=== PATIENT | female | born 1995 | race Caucasian/White ===

== ENCOUNTER 2023-05-15 08:04 | Emergency (ER) | payer BC, SELFPAY ==
[2023-05-15 08:20] VITALS: BP 121/75; PULSE 78; RESP 16; TEMP 36.4; O2SAT 99
--- NOTE | 2023-05-15 08:42 | ED.GENADULT ---
HPI - General Adult General Chief complaint: Back Pain/Injury Stated complaint: Back Pain Source: patient Mode of arrival: ambulatory Limitations: no limitations History of Present Illness HPI narrative: Patient presents for evaluation of low back pain for the last 9 days. She indicates she has history of lumbar disc herniations at L3 through L5. 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 She rates her pain at rest 7/10 in severity but it increases to 10/10 in severity with movement. Pain radiates up her back toward her neck. No paresthesias. No urinary symptoms. No bladder / bowel incontinence. She has been taking ibuprofen for her pain. She is planning on having x rays performed with her chiropractor on Wednesday. Related Data Allergies Allergy/AdvReac Type Severity Reaction Status Date / Time No Known Allergies Allergy Verified 05/15/23 08:15 Review of Systems Review of Systems: CONSTITUTIONAL: Denies fever, chills, or sweats. EYES: Denies visual changes, redness, or discharge. ENT: Denies rhinorrhea, congestion, sore throat, or otalgia. CARDIOVASCULAR: Denies chest pain, palpitations, or edema. RESPIRATORY: Denies cough or dyspnea. GASTROINTESTINAL: Denies abdominal pain, nausea, vomiting, or diarrhea. GENITOURINARY: Denies dysuria or hematuria. SKIN: Denies rash or itching. MUSCULOSKELETAL: Reports low back pain. Denies joint pain, or myalgia. NEUROLOGIC: Denies headache, numbness, dizziness, or weakness. PSYCHIATRIC: Denies anxiety or depression. [facility] Past Medical History Medical History Herniated lumbar intervertebral disc Surgical History Surgical History History of tonsillectomy Family History Family History Mother Family history non-contributory Social History Social History Smoking status: Never smoker Substance use: never Living arrangements: with family Occupation/Education: student Gender identity (if verbalized by the patient): Female Sexual Orientation (if Verbalized by the Patient): Straight or Heterosexual Spiritual care concerns: No Exam Narrative: GENERAL: Well-appearing, well-nourished, and in no acute distress. HEAD: Normocephalic, atraumatic. EYES: PERRLA and EOMI. ENT: Nares clear, no rhinorrhea or epistaxis. Mucous membranes moist. Oropharynx without tonsillar hypertrophy exudate or other lesions. Bilateral TMs pearly lopez nonbulging NECK: Supple. No adenopathy or masses. No carotid bruits or JVD CHEST: Clear to auscultation. No respiratory distress. No wheezes rales or rhonchi HEART: Regular rate and rhythm. No murmur heard. Normal peripheral pulses. ABDOMEN: Soft, nontender nondistended, normal active bowel sounds. EXTREMITIES: Normal range of motion. No edema. BACK: Tenderness in midline and paraspinous muscles of lumbar spine SKIN: Warm, dry, no rash. NEURO: No focal deficits. Alert and oriented x3. PSYCH: Normal mood and affect. Course Course Emergency Course: This is a 28-year-old female with history of herniated lumbar discs who presented for evaluation of low back pain following lifting a patient. She has no emergent red flag signs. I offered to check x ray of lumbar spine. She declined. She is seeing her chiropractor on Wednesday. We discussed treatment options and ultimately decided to move forward with medrol dose naida and flexeril. She should follow up with her primary provider. Go to the ER for worsening symptoms. Pt in agreement with plan of care. Level of Care: Express Care Visit Vital Signs Vital signs: Vital Signs Temperature 36.4 C L 05/15/23 08:20 Pulse Rate 78 05/15/23 08:20 Respiratory Rate 16 05/15/23 08:20 Blood Pressure 121/75 05/15/23 0
== END 2023-05-15 08:32 | disposition home or self-care (01) ==
PROVIDERS: Emergency Provider Nurse Practitioner
DX: M51.26 Other intervertebral disc displacement, lumbar region (principal)
CPT/HCPCS: 99213; G0463

== ENCOUNTER 2025-03-29 19:25 | Emergency (ER) | payer OTHER, SELFPAY ==
[2025-03-29 19:39] VITALS: BP 122/69; PULSE 76; RESP 16; TEMP 37.1; O2SAT 100
--- OUTSIDE RECORDS SUMMARY | 2025-03-29 20:40 | XMS_ITS | Encounter Summary ---
Author Organization [facility] Address [address] [place] [address] Care Team Providers Care Sales Coach Name Role Phone No, Physician Primary Care Provider [phone] Elinor Shrestha MD Unavailable [phone] Encounter Details Date Type Department Care Team (Late st Contact Info) Description 02/28/2025 Results Follow-Up [facility] [address] [place] [address] [address] [place] [address] Elinor Shrestha MD [address] [address] [place] [address] Rubella IgG antibody Blood, RPR Titer Blood, ABO/Rh, Additional followed-up results: 7 Social History Tobacco Use Types Packs/Day Years Used Date Smoking Tobacco: Never Passive Smoke Exposure: Never Smokeless Tobacco: Never Humiliation, Afraid, Rape, and Kick questionnair e Answer Date Recorded Within the last year, have y ou been afraid of your partner or ex-partner? No 02/02/2025 Within the last year, have y ou been humiliated or emotionally abused in other ways by your partner or ex-partner? No Within the last year, have y ou been kicked, hit, slapped, or otherwise physically hurt by your partner or ex-partner? No 02/02/2025 Within the last year, have y ou been raped or forced to have any kind of sexual activity by your partner or ex-partner? No 02/02/2025 AUDIT-C Answer Date Recorded Q1: How often do you have a drink containing alcohol? Never 02/01/2024 Q2: How many drinks containi ng alcohol do you have on a typical day when you are drinking? Patient does not drink Q3: How often do you have si x or more drinks on one occasion? Never 02/01/2024 Overall Financial Resource Strain (CARDIA) Answe r Date Recorded How hard is it for you to pa y for the very basics like food, housing, medical care, and heating? Not hard at all 07/27/2024 Hunger Vital Sign Answer Date Recorded Within the past 12 months, y ou worried that your food would run out before you got the money to buy more. Never true 07/27/19 25 Within the past 12 months, t he food you bought just didn't last and you didn't have money to get more. Never true 07/27/2024 PRAPARE - Transportation Answer Date Re corded In the past 12 months, has l ack of transportation kept you from medical appointments or from getting medications? No 08/2024 In the past 12 months, has l ack of transportation kept you from meetings, work, or from getting things needed for daily living? No 07/27/2024 [place] Depression Scale Answer Date Recorded [place] Depression Scale Total 1 08/04/2024 The thought of harming myself has occurred to me . Never 08/04/2024 Housing Stability Vital Sign Answer Victorino e Recorded In the last 12 months, was t here a time when you were not able to pay the mortgage or rent on time? No 07/27/2024 In the past 12 months, how m any times have you moved where you were living? 1 07/27/2024 At any time in the past 12 m [facility], were you homeless or living in a detention (including now)? No 07/27/2024 Personal Safety Answer Date Recorded Have you ever been in or are you currently in a harmful physical or emotional relationship or is someone making you feel afraid or unsafe? 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
--- OUTSIDE RECORDS SUMMARY | 2025-03-29 20:40 | XMS_ITS | Clinical Summary ---
Author Organization [facility] [address] Address [address] [place] [id number] Care Team Providers Care Psychiatric Np Name Role Phone No, Physician Primary Care Provider [phone] Elinor Shrestha MD Unavailable [phone] Allergies No known active allergies Medications PNV cmb 00-nydy-DL-omega -3-dha 29 mg iron- 1 mg-200 mg combo pack Take by mouth Active cholecalciferol (VITAMIN D-3) 2000 unit tablet Take 1 tablet (2,000 Units total) by mouth daily Active Active Problems Problem Noted Date Diagnosed Date Supervision of other normal , antepartu m 02/01/2025 Overview (02/01/2025): NOTES: Partner name: 1st Trimester: [] Dating Criteria: [] Labs: Lab Results Component Value Date RUBELIGG Nonreactive (A) 02/01/2024 [id number] Nonreactive 02/01/2024 HEPBSAG Nonreactive 02/01/2024 HEPCAB Nonreactive 02/01/2024 LABRPR Nonreactive 08/02/2024 CTRACHOMATIS Not Detected 02/01/2024 NGONORRHOEAE Not Detected 02/01/2024 MICROBIOLOGY 02/01/2024 Final Report: Less than 100,000 colonies/mL (clinically insignificant growth based on current clinical standards) ORGANISM (CLINICALLY INSIGNIFICANT GROWTH 02/01/2024 ABORH O Positive 08/02/2024 IDCOOMB Negative 08/02/2024 [] NIPT: [] Carrier screening: [] ASA at 12 weeks: 2nd - 3rd Trimester: [] Anatomy ultrasound: [] Placenta Location: previa or no previa [] echo (if monochorionic, IVF, hx CHD): [] 1h GTT: Lab Results Component Value Date [id number] 173 (H) 05/16/2024 [] CBC: [] Flu vaccine: [] Rhogam (28 wks if Rh neg): [] Tdap vaccine: [] 32 wk ultrasound: [] RSV vaccine (32-36wks): [] GBS (36 wks): No results found for: GBS Lab Results Component Value Date STREPBDNA Negative 07/13/2024 Counseling: [] Shadowgraph Scale Operator: [] Circumcision: [] Method of feeding: [] Method of contraception: [] Epidural: [] Route of Delivery: [] Timing of Delivery: [] Childbirth classes Migraines 10/12/2024 Overview (02/27/2025): With aura. Vitamin D deficiency 10/12/2024 Overview (02/27/2025): Takes supplement. H/O Diet COntrolled GDM in prior 05/19 Overview (02/01/2025): Assessment & Plan (06/16/2024 11:05 AM ELECTROLYSIS NEEDLE OPERATOR): Glucose log reviewed. Good control Childhood asthma 02/01/2024 Overview (02/01/2024): None since child serna Assessment & Plan (02/01/2024 11:17 AM CDT): We discussed that asthma improves in 1/3 of pregnancies and worsens in 1/3. To let me know if she is needing to use her rescue inhaler more than prescribed. 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 Partner name: Chaz (Plaster Die Maker) Big sister: Katiana (6 months) 1st Trimester: [x] Dating Criteria: 1st trimester US [] Labs: Lab Results Component Value Date RUBELIGG Nonreactive (A) 02/01/2024 [id number] Nonreactive 02/01/2024 HEPBSAG Nonreactive 02/01/2024 HEPCAB Nonreactive 02/01/2024 LABRPR Nonreactive 02/01/2024 CTRACHOMATIS Not Detected 02/01/2024 NGONORRHOEAE Not Detected 02/01/2024 MICROBIOLOGY 02/01/2024 Final Report: Less than 100,000 colonies/mL (clinically insignificant growth based on current clinical standards) ORGANISM (CLINICALLY INSIGNIFICANT GROWTH 02/01/2024 ABORH O Positive 02/01/2024 IDCOOMB Negative ABSC 02/01/2024 [x] NIPT: declines [x] Carrier screening: declines [x] ASA at 12 weeks: not indicated 2nd - 3rd Trimester: [] Anatomy ultrasound: [] Placenta Location: [] 1h GTT: Lab Results Component Value Date [id number] 173 (H) 05/16/2024 [] CBC: Lab Results Component Value Date WBC 8.5 05/16/2024 HGB 11.7 05/16/2024 HCT 35.1 05/16/2024 MCV 94 05/16/2024 LABPLAT 159 05/16/2024 [] Flu vaccine: [x] Rhogam (28 wks if Rh neg): not indicated, O+ [] Tdap vaccine: [] 32 wk ultrasound: [x] RSV vaccine (32-36wks): Declines [] GBS (36 wks): No results found for: GBS Lab Results Component Value Date STREPBDNA Negative 07/13/2024 No results found for: GBS Counseling: [] Shadowgraph Scale Operator: [] Method of feeding: [] Method of contraception: [] Epidural: [] Route of Delivery: [] Timing of Delivery: Assessment & Plan (03/20/2024 3:49 PM CDT): - Reviewed US results - Discussed finding a service plumber - Breast pump RX given to patient - Discussed option for classes at [email or web address] Assessment & Plan (02/29/2024 8:54 AM CDT): Transfer of care at 16 weeks Reviewed care Encounters Date Type Department Care Team Description 03/16/2025 Telephone [facility] [address] [facility] [address], [place] [address] Elinor Shrestha MD 02/28/2025 Results Follow-Up [facility] [address] [facility] [address] [facility] [address], [place] [address] Elinor Shrestha MD Rubella IgG antibody Blood, RPR Titer Blood, ABO/Rh, Additional followed-up results: 7 02/27/2025 1:45 PM CDT Office Visit [facility] [address] [facility] [address], [place] [address] Elinor Shrestha MD Positive test (Primary Dx) 02/27/2025 1:30 PM CDT Ancillary Procedure [facility] [address] [facility] [address] [place] [address] , unspecified gestational age 0702/01/2025 Telephone [facility] [address] [facility] [address] [place] [id number] Elinor Shrestha MD from Last 3 Months Immunizations Immunization Administration Dates Next Due Influenza, Trivalent, Preservative Free, Intramu scular 05/31/2024 MMR 10/12/2024 Tdap 06/16/2024 Surgical History Surgery Date Site/Laterality Comments AUGMENTATION MAMMAPLASTY TONSILLECTOMY Medical History Medical History Date Comments Asthma childhood Diabetes mellitus (HCC) Gestatio nal-diet controlled Lumbar herniated disc L3-S1 Family History Medical History Relation Name Comments Hypertension Father Diabetes type II Maternal Grandfather Heart disease Maternal Grandfather Alcohol abuse Mother her sisters al l had. Hall's disease Other Runs in the family No Known Problems Sister Cancer Neg Hx no colon, rn gyn o r breast cancer cmt 7/9/24 Relation Name Status Comments Father Maternal Grandfather Mother Other Sister Social History Tobacco Use Types Packs/Day Years Used Date Smoking Tobacco: Never Passive Smoke Exposure: Never Smokeless Tobacco: Never Tobacco Cessation:Counseling Given: Not Answered Humiliation, Afraid, Rape, and Kick questionnair e [...] things needed for daily living? No 07/27/2024 [place] Depression Scale Answer Date Recorded [place] Depression Scale Total 1 08/04/2024 The thought [...] any time in the past 12 m [facility], were you homeless or living in a jail (including now)? No 07/27/2024 Personal Safety Answer [...] file Not on file Not on file Obstetrics History Para Term AB IAB SAB Ectopic Multiple Livin g Live Births 2 1 1 0 0 0 0 0 0 1 1 Date Outcome GA Total Labor Labor/2nd/3rd Weight Sex Type Anes PTL Shirley A1 A5 Name Clin 2024 Term 39w 2d 11h 55m 8h 41m/3h 10m/0h 04m 3.52 kg (7 lb 12.2 oz) F Vagina l Epidur al N Livin g 8 9 Katiana D [facility]ulkadir [facility] Complications:None Delivery Location:This Facil ity ([facility]) Current Summary Episode Dates Number of Fetuses Estimated Date of Delivery 02/01/2025 - Present (03/29/2025) 10/13/2025 (set by Elinor Shrestha MD on 02/27/2025 based on Ultrasound on 02/27/2025) Dating Summary Based On GABE GA Diff Last Menstrual Period on 12/31/2024 10/07/2025 +6d Ultrasound on 02/27/2025 10/13/2025 Working GA:7w3d Vitals Pregravid Weight Height TWG (As of 03/29/2025) Pregrav id BMI 72.6 kg (160 lb) 165.1 cm (5' 5) 1.361 kg (3 lb) 26.6 3 Notes Progress Notes - Office Visi t - 02/27/2025 - GA:7w3d 02/27/2025 - 7w3d - Elinor Shrestha MD Images from the original note were not included. Office Visit for Confirmation of Subjective: Geoff Lucas is a 29 y.o. year old female who presents for evaluation of secondary amenorrhea. OB US independently interpreted by me: US Ob Transvaginal Result Date: 02/27/2025 Impression: There is a viable Fisher intrauterine identified. The CRL measured 7 weeks 3 days. This is not consistent with LMP dating. The heart rate is 156 beats per minute. There is a corpus luteum noted within the left ovary. The right ovary is normal. Nausea/vomiting? yes Vaginal bleeding? no Planned ? no Desired ? yes Menstrual History: Patient's last menstrual period was 12/31/2024. 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: Last pap:PAP: 02/01/24, normal neg hpv History of STDs: none Medical: Past Medical History: Diagnosis Date Asthma childhood Diabetes mellitus (HCC) Gestational-diet controlled Lumbar herniated disc L3-S1 Surgical: Past Surgical History: Procedure Laterality Date AUGMENTATION MAMMAPLASTY TONSILLECTOMY Medications: Current Outpatient Medications: cholecalciferol (VITAMIN D-3) 2000 unit tablet, Take 1 tablet (2,000 Units total) by mouth daily, Disp: , Rfl: PNV cmb 85-lnaf-NX-omega-3-dha 29 mg iron- 1 mg-200 mg combo pack, Take by mouth, Disp: , Rfl: Allergies: No Known Allergies Family History: Family History Problem Relation Age of Onset Alcohol abuse Mother her sisters all had. Hypertension Father No Known Problems Sister Heart disease Maternal Grandfather Diabetes type II Maternal Grandfather Hall's disease Other Runs in the family Cancer Neg Hx no colon, rn gyn or breast cancer cmt 02/01/24 Social History: Social History Tobacco Use Smoking status: Never Passive exposure: Never Smokeless tobacco: Never Substance and Sexual Activity Drug use: Never Sexual activity: Yes Partners: Male Alcohol Use: Not At Risk (02/01/2024) AUDIT-C Frequency of Alcohol Consumption: Never Average Number of Drinks: Patient does not drink Frequency of Binge Drinking: Never Physical Exam: Vitals: BP 110/80 Ht 165.1 cm (5' 5) Wt 163 lb (73.9 kg) LMP 12/31/2024 Unknown BMI 27.12 kg/m Constitutional: She is alert. She appears well-developed and well-nourished. No apparent distress. Head: Normocephalic and atraumatic. Neck: Neck supple. No thyromegaly present. No lymphadenopathy. Pulmonary/Chest: Effort normal and breath sounds normal. No respiratory distress. Breast: There are no masses, lumps, or lesions bilaterally. Bilateral nipples are normal. No axillary lymphadenopathy or cervical lymphadenopathy. Abdominal: Soft, non-tender, non-distended. No hernia or mass. Psychiatric: She has a normal mood and affect : Normal external genitalia. Urethra normal. Vagina is normal. Physiologic discharge. - cervix visually closed without lesions Assessment and Plan: Geoff Lucas is a 29 y.o. female who presents for secondary amenorrhea Secondary amenorrhea due to - Reviewed dating - Recommend PNV with DHA daily - OB labs ordered: OB panel, HIV, urine culture - Discussed options for carrier testing for cystic fibrosis and SMA - declines - Genetic screening offered. declines NIPT - Reviewed course of care and normal - Dietary and activity recommendations reviewed - Discussed practice policies and general guidelines. Referred to brochure for [id number] medications safe in and remedies for common symptoms of . - Discussed appropriate weight gain in . - Dietary recommendations reviewed, specifically, limiting caffeine to 200 mg daily. No ETOH, smoking or drug use. Discussed pasturized milk and heating up deli meat. Advised against eating raw or undercooked meat, poultry or fish. Fish that are high in mercury including shark, tilefish, desiree mackerel and swordfish should also be avoided. - Discussed benefits of regular exercise. Discussed avoiding dangerous activities such as rock climbing, water skiing, snow skiing, roller bleeding. - Discussed travel up to 34 weeks is typically fine - We discussed routine office visits every 4 weeks for first 28 weeks, then every 2 weeks to 36 weeks, and then weekly until delivery. - We discussed that my partners and I deliver at [facility]. 2. H/o prior GDM - hgb A1c 3. Childhood asthma - no issures in prior - will avoid hemabate 4. Short interval - increased risk for gHTN, IUGR, and PTD - will monitor closely for the above Elinor Shrestha MD Last Filed Vital Signs Vital Sign Reading Time Taken Comments Blood Pressure 110/80 02/27/2025 1:58 PM CDT Pulse 69 08/05/2024 7:34 AM ELECTROLYSIS NEEDLE OPERATOR Temperature 36.4 C (97.5 F) 08/05/2024 7:34 AM ELECTROLYSIS NEEDLE OPERATOR Respiratory Rate 18 08/05/2024 7:34 AM ELECTROLYSIS NEEDLE OPERATOR Oxygen Saturation 100% 08/05/2024 7:34 AM ELECTROLYSIS NEEDLE OPERATOR Inhaled Oxygen Concentration - - Weight 73.9 kg (163 lb) 02/27/2025 1:58 PM CDT Height 165.1 cm (5' 5) 02/27/2025 1:58 PM CDT Body Mass Index 27.12 02/27/2025 1:58 PM CDT Plan of Treatment Health Maintenance Due Date Last Done Comments Hepatitis B Screening 2013 Regular Well Visit/Exam 18-64 2013 Pneumococcal vaccine <65 (1 of 2 - PCV) 2014 HPV Vaccines (1 - 3-dose SCDM series) 2022 Varicella Vaccines (1 of 2 - 13+ 2-dose series) 11/09/2024 Cervical Cancer Screening 01/31/2025 02/01/2024 Influenza Vaccine (#1) 2025 05/31/2024 Depression Screening 08/04/2025 08/04/2024 DTaP/Tdap/Td Vaccine (2 - Td or Tdap) 06/16/2034 Hepatitis C Screening Completed 02/27/2025, 024 Procedures Procedure Name Priority Date/Time Associated Diagnosis Comments INTERPRETATION: Routine 02/27/2025 2:19 PM CDT THYROID FUNCTION CASCADE Routine 02/27/2025 2:19 PM CDT HEMOGLOBIN A1C Routine 02/27/2025 2:19 PM CDT ANTIBODY SCREEN Routine 02/27/2025 2:19 PM CDT Positive test HEPATITIS C AB W/REFL TO HCV RNA, QN, PCR (REFL) Routine 02/27/2025 2:19 PM CDT Positive test CBC WITHOUT DIFFERENTIAL Routine 02/27/2025 2:19 PM CDT Positive test ABO/RH Routine 02/27/2025 2:19 PM CDT Positive test URINE CULTURE Routine 02/27/2025 2:19 PM CDT HIV 1/2 ANTIBODY PLUS P24 ANTIGEN Routine 02/27/2025 2:19 PM CDT Positive test HEPATITIS B SURFACE ANTIGEN Routine 02/27/2025 2:19 PM CDT Positive test RPR TITER Routine 02/27/2025 2:19 PM CDT Positive test RUBELLA IGG Routine 02/27/2025 2:19 PM CDT Positive test POCT OB URINE SHORT DIP (GLUCOSE, PROTEIN, KETONES) Routine 02/27/2025 2:05 PM CDT Positive test US OB TRANSVAGINAL Schedule Routine, Read Routine (OP Routine) 02/27/2025 1:35 PM CDT , unspecified gestational age PAP WITH REFLEX TO HIGH RISK HPV Routine 02/01/2024 9:21 AM CDT Encounter for supervision of normal first in first trimester 13 weeks gestation of from Last 3 Months or Most Recently Relevant to Health Maintenance Results * HEPATITIS C AB W/REFL TO HCV RNA, QN, PCR (REFL) (02/27/2025 2:19 PM CDT) Pathologist [facility] Hep C Ab Non Reactive Non Reactive [facility] - 01 Blood 02/27/2025 2:19 PM CDT 02/27/2025 Narrative [facility] - 02/28/2025 6:36 AM CDT Performed at: [address] [place] [id number] Orthodontic Technician Assistant: Erlin Alvarado PhD, Phone: [phone] Elinor Shrestha MD LAB BLOOD ORDERABLES Final Result Performing Organization Address [facility] de Phone Number [facility] - * Interpretation: (02/27/2025 2:19 PM CDT) Pathologist [facility] Ref lab test, interp Comment [facility] - 0 1 Comment: Not infected with HCV unless early or acute infection is suspected (which may be delayed in an immunocompromised individual), or other evidence exists to indicate HCV infection. 02/27/2025 2:19 PM CDT 02/27/2025 Narrative [facility] - 02/28/2025 6:36 AM CDT Performed at: [address] [place] [address] [id number] Orthodontic Technician Assistant: Erlin Alvarado PhD, Phone: [phone] Elinor Shrestha MD LAB BLOOD ORDERABLES Final Result Performing Organization Address [facility] de Phone Number [facility] - 01 * Thyroid Function Kerrick (02/27/2025 2:19 PM CDT) Pathologist [facility] TSH 0.768 0.450 - 4.500 uIU/mL [facility] - 01 Comment: No apparent thyroid disorder. Additional testing not indicated. In rare instances, Secondary Hypothyroidism as well as Subclinical Hypothyroidism have been reported in some patients with normal TSH values. 02/27/2025 2:19 PM CDT 02/27/2025 Narrative [facility] - 02/28/2025 10:36 AM CDT Performed at: [address] [place] [address] [id number] Orthodontic Technician Assistant: Erlin Alvarado PhD, Phone: [phone] Elinor Shrestha MD LAB BLOOD ORDERABLES Final Result Performing Organization Address [facility] Co de Phone Number [facility] - * RPR Titer Blood (02/27/2025 2:19 PM CDT) Pathologist [facility] RPR Non Reactive Non Reactive [facility] - Blood 02/27/2025 2:19 PM CDT 02/27/2025 Narrative [facility] - 02/28/2025 8:12 AM CDT Performed at: [address] [place] [address] [id number] Orthodontic Technician Assistant: Erlin Alvarado PhD, Phone: [phone] us Elinor Shrestha MD LAB MICROBIOLOGY - GENERAL ORDERABLES Final Result Performing Organization Address [facility] Co de Phone Number [facility] - * HIV 1/2 Antibody plus p24 Antigen Blood (02/27/2025 2:19 PM CDT) Pathologist [facility] HIV 1/2 Ab + p24 Ag Non Reactive Non Reactive [facility] - 01 Comment: HIV-1/HIV-2 antibodies and HIV-1 p24 antigen were NOT detected. There is no laboratory evidence of HIV infection. HIV Negative Blood 02/27/2025 2:19 PM CDT 02/27/2025 Narrative [facility] - 02/28/2025 6:36 AM CDT Performed at: [address] [id number] Orthodontic Technician Assistant: Erlin Alvarado PhD, Phone: [phone] Elinor Shrestha MD LAB MICROBIOLOGY - GENERAL ORDERABLES Final Result Performing Organization Address [facility] Co de Phone Number [facility] - * ABO/Rh (02/27/2025 2:19 PM CDT) Pathologist [facility] ABO Grouping O [facility] - 01 Rh Factor Positive [facility] - 01 Comment: Please note: Prior records for this patient's ABO / Rh type are not available for additional verification. Blood 02/27/2025 2:19 PM CDT 02/27/2025 Narrative [facility] - 02/28/2025 9:36 AM CDT Performed at: [address] [place] [address] [id number] Orthodontic Technician Assistant: Erlin Alvarado PhD, Phone: [phone] Elinor Shrestha MD LAB BLOOD BANK TEST ORDERAB LES Final Result Performing Organization Address [facility] de Phone Number [facility] - * Rubella IgG antibody Blood (02/27/2025 2:19 PM CDT) [facility] Rubella IgG index 3.49 Immune >0.99 index [facility] - Comment: Non-immune <0.90 Equivocal 0.90 - 0.99 Immune >0.99 Blood 02/27/2025 2:19 PM CDT 02/27/2025 Narrative [facility] - 02/28/2025 8:12 AM CDT Performed at: [address] [place] [address] [id number] Orthodontic Technician Assistant: Erlin Alvarado PhD, Phone: [phone] Elinor Shrestha MD LAB MICROBIOLOGY - GENERAL ORDERABLES Final Result Performing Organization Address [facility] Co de Phone Number [facility] - * Hepatitis B Surface Antigen Blood (02/27/2025 2:19 PM CDT) Pathologist [facility] HepBsAg Negative Negative [facility] - 01 Blood 02/27/2025 2:19 PM CDT 02/27/2025 Narrative [facility] - 02/28/2025 6:36 AM CDT Performed at: [address] [place] [address] [id number] Orthodontic Technician Assistant: Erlin Alvarado PhD, Phone: [phone] us Elinor Shrestha MD LAB MICROBIOLOGY - GENERAL ORDERABLES Final Result Performing Organization Address [facility]/ZIP Co de Phone Number [facility] - 01 * CBC without differential (02/27/2025 2:19 PM CDT) Pathologist [facility] WBC 9.6 3.4 - 10.8 x10E3/uL [facility] - 01 RBC 4.72 3.77 - 5.28 x10E6/uL [facility] - 01 Hgb 14.1 11.1 - 15.9 g/dL [facility] - 01 Hct 43.9 34.0 - 46.6 % [facility] - 01 MCV 93 79 - 97 fL [facility] - 01 MCH 29.9 26.6 - 33.0 pg [facility] - 01 MCHC 32.1 31.5 - 35.7 g/dL [facility] - 01 Rdw 12.0 11.7 - 15.4 % [facility] - 01 Platelets 226 150 - 450 x10E3/uL [facility] - 01 Blood 02/27/2025 2:19 PM CDT 02/27/2025 Narrative [facility] - 02/28/2025 5:36 AM CDT Performed at: [address] [place] [address] [id number] Orthodontic Technician Assistant: Erlin Alvarado PhD, Phone: [phone] us Elinor Shrestha MD LAB BLOOD ORDERABLES Final Result [facility] - 01 * Antibody screen (02/27/2025 2:19 PM CDT) [facility] Antibody screen Negative Negative [facility] - 01 Blood 02/27/2025 2:19 PM CDT 02/27/2025 Narrative [facility] - 02/28/2025 9:36 AM CDT Performed at: [address] [place] [address] [id number] Orthodontic Technician Assistant: Erlin Alvarado PhD, Phone: [phone] us Elinor Shrestha MD LAB BLOOD BANK TEST ORDERAB LES Final Result Performing Organization Address [facility]/ZIP Co de Phone Number [facility] - * Urine culture (02/27/2025 2:19 PM CDT) [facility] Urine culture Final report [facility] - Result 1 No growth [facility] - 01 02/27/2025 2:19 PM CDT 02/27/2025 Comment: Narrative [facility] - 03/01/2025 1:07 AM CDT Performed at: [address] [id number] Orthodontic Technician Assistant: Erlin Alvarado PhD, Phone: [phone] us Elinor Shrestha MD LAB MICROBIOLOGY - GENERAL ORDERABLES Final Result Performing Organization Address [facility]/ZIP Co de Phone Number [facility] - * Hemoglobin A1c (02/27/2025 2:19 PM CDT) [facility] Hgb A1C 4.9 4.8 - 5.6 % [facility] - 01 Comment: Prediabetes: 5.7 - 6.4 Diabetes: >6.4 Glycemic control for adults with diabetes: <7.0 02/27/2025 2:19 PM CDT 02/27/2025 Narrative [facility] - 02/28/2025 6:36 AM CDT Performed at: [address] [id number] Orthodontic Technician Assistant: Erlin Alvarado PhD, Phone: [phone] Elinor Shrestha MD LAB BLOOD ORDERABLES Final Result [facility] - 01 * (ABNORMAL) POCT OB urine short dip (glucose, protein, ketones) (02/27/2025 2:05 PM CDT) Glucose, ur, POC Negative Negative Comment:5.0 Protein, ur, POC Negative Negative Comment:1.020 Ketones, ur, POC Trace(A) Negative Urine 02/27/2025 2:05 PM CDT Elinor Shrestha MD POINT OF CARE TEST ORDERABL ES Final Result * US Ob Transvaginal (02/27/2025 1:35 PM CDT) Anatomical Region Laterality Modality Abdomen N/A Ultrasound 02/27/2025 1:35 PM CDT Impressions 02/27/2025 2:03 PM CDT There is a viable Fisher intrauterine identified. The CRL measured 7 weeks 3 days. This is not consistent with LMP dating. The heart rate is 156 beats per minute. There is a corpus luteum noted within the left ovary. The right ovary is normal. Narrative Procedure Note Elinor Shrestha MD - 02/27/2025 IMPRESSION: There is a viable Fisher intrauterine identified. The CRLmeasured 7 weeks 3 days. This is not consistent with LMP dating. Thefetal heart rate is 156 beats per minute. There is a corpus luteum notedwithin the left ovary. The right ovary is normal. Elinor Shrestha MD IMG OB US PROCEDURES Final Result * Pap with reflex to High Risk HPV and Genotyping (Cytology Component) (02/01/2024 9:21 AM CDT) Thin prep (Pap test) 02/01/2024 9:21 AM CDT 02/02/2024 9:21 AM CDT Narrative PATHOLOGY - 02/04/2024 2:[address] [facility] Department of Pathology [address] [place], [place] [id number] Final Report Note to Patients: This report may contain a detailed description of human tissue sent by a health care provider to the laboratory for pathologic evaluation. The content of this report is essential for diagnosis and may provide important critical findings. This information may be unfamiliar to patients to review without a medical professional present. It is advised that the patient review this report in the presence of a health care provider who can answer questions and explain the details. Patient Name: GEOFF LUCAS Address: [address] [place] [address] Gender: F : 1995 (Age: 28) Service: Location: N : [id number] Hospital #: [id number] Patient Type: [facility]CI[facility] Taken: 02/01/2024 Received: 02/02/2024 Accessioned:: 02/03/2024 Reported: 02/04/2024 Physician(s): Joe Romo M.D. Diagnosis: SOURCE OF SPECIMEN Imaged Thinprep Pap Test w/ Reflex HPV - Youth Program Director Cytologic Material: STATEMENT OF ADEQUACY - Satisfactory for evaluation; endocervical/transformation zone component present GENERAL CATEGORIZATION: - Negative for intraepithelial lesion or malignancy RADHA Abarca(ASCP) Report Electronically Reviewed and Signed Out By RADHA Abarca(ASCP) 02/04/2024 14:08:14Specimen(s) Received: A: Imaged Thinprep Pap Test w/ Reflex HPV - Youth Program Director Cytologic Material Clinical History: Last Menstrual Period: 11/02/23 Menstrual History: The Pap test is a screening test used to aid in the detection of cervical cancer and its precursors. It should not be the sole means by which malignant and premalignant lesions are diagnosed. Both false negative and false positive results may occur. It also has poor sensitivity for the detection of endometrial lesions and should not be used to evaluate suspected endometrial abnormalities. For these reasons it is most important to obtain Pap tests at regular intervals. The performance characteristics of some immunohistochemical stains, fluorescence in-situ hybridization tests and immunophenotyping by flow cytometry cited in this report (if any) were determined by the Surgical Pathology Department at [facility] as part of an ongoing manufacturing quality engineer program and in compliance with federally mandated regulations drawn from the Clinical Laboratory Improvement Act of 1988 (CLIA '88). Some of these tests rely on the use of analyte specific reagents and are subject to specific labeling requirements by the US Food and Drug Administration. Such diagnostic tests may only be performed in a facility that is certified by the Department of Health and Human Services as a high complexity laboratory under CLIA '88. The FDA has determined that such clearance or approval is not necessary. This test is used for clinical purposes. It should not be regarded as investigational or for research. Nevertheless, federal rules concerning the medical use of analyte specific reagents require that the following disclaimer be attached to the report: This test was developed and its performance characteristics determined by the Surgical Pathology Department [facility]. It has not been cleared or approved by the U. S. Food and Drug Administration. Maryellen Callaway MD LAB CYTOLOGY ORDERA MELISSA Final Result [facility] [id number] [id number] from Last 3 Months or Most Recently Relevant to Health Maintenance Insurance [employer] [facility] [employer] [employer] Address: [facility] [id number] [place] [phone] [facility] [address] [employer] [facility] [employer] Address: [address] [place] [address] [employer] [facility] [employer] Address: [address] [place] [address] Advance Directives For more information, please contact: [phone] * Full Code (Latest Code Status on File) Date Activated Date Inactivated Comments 08/03/2024 8:51 PM 08/05/2024 4:13 PM * Full Code Date Activated Date Inactivated Comments 08/02/2024 10:42 PM 08/03/2024 8:51 PM Full CPR in c ase of cardiopulmonary arrest Care Teams Psychiatric Np Relationship Specialty Start Date End Date No, Physician PCP - General 06/29/23 Elinor Shrestha MD [address] [facility] [address] [place] [address] Consulting Physician Obstetrics and Gynecology 08/04/24
[2025-03-29] MEDS: SODIUM CHLORIDE 0.9% IV 1,000 ML 999 ML IV CONT (21:06)
--- NOTE | 2025-03-29 21:07 | ED.HA ---
HPI - Headache General Chief Complaint: Headache Stated Complaint: migraine Time Seen by Provider: 03/29/25 20:07 History of Present Illness HPI Narrative: Patient is a 29-year-old female who presents to the ER with a migraine. She reports she has a history of migraines but has not had one since 2021. Patient reports she has had little success with triptans in the past. She reports this headache started around 2:00 p.m. today. Patient endorses nausea with the headache. She reports this is similar to previous migraines. Patient reports daily thing that has helped in the past as when she has come into the ER for rehydration. She reports she is 12 weeks at this time. Patient denies any other medical history relevant to this ER visit. Related Data Allergies Allergy/AdvReac Type Severity Reaction Status Date / Time No Known Allergies Allergy Verified 03/29/25 19:44 Review of Systems Review of Systems: All systems reviewed & are unremarkable except as noted in HPI and below PMFSH Past Medical History Medical History Herniated lumbar intervertebral disc Surgical History Surgical History History of tonsillectomy Family History Family History Mother Family history non-contributory Social History Social History Smoking status: Never smoker Substance use: never Living arrangements: with family Occupation/Education: student Gender identity (if verbalized by the patient): Female Sexual Orientation (if Verbalized by the Patient): Straight or Heterosexual Spiritual care concerns: No Exam Narrative: GENERAL: Well appearing, well-nourished, non-toxic, in no acute distress. HEAD: Normocephalic, atraumatic. NECK: Supple. No adenopathy, no masses. RESPIRATORY: Airway patent, respirations nonlabored. Clear to auscultation bilaterally, no rales, rhonchi, wheezing. CARDIOVASCULAR: Regular rate and rhythm without murmurs, rubs, or gallops. Peripheral pulses 2+ and equal bilaterally. ABDOMINAL: Soft, nontender, nondistended, no hepatosplenomegaly. Normoactive BS. MUSCULOSKELETAL: Moves all extremities. Strength/ROM intact without gross deformities. SKIN: Warm, dry, normal color. No rashes. NEURO: A&O X3. Speech clear. Cranial nerves II-XII intact. No ataxic movements. PSYCHIATRIC: Appropriate mood and affect. Normal interaction. Course Vital Signs Vital signs: Vital Signs Temperature 37.1 C 03/29/25 19:39 Pulse Rate 76 03/29/25 19:39 Respiratory Rate 16 03/29/25 19:39 Blood Pressure 122/69 03/29/25 19:39 Pulse Oximetry 100 03/29/25 19:39 Temperature 37.1 C 03/29/25 19:39 Pulse Rate 76 03/29/25 19:39 Respiratory Rate 16 03/29/25 19:39 Blood Pressure 122/69 03/29/25 19:39 Pulse Oximetry 100 03/29/25 19:39 MDM - Headache MDM Narrative Medical decision making narrative: Patient is a 29-year-old female who presents to the ER with a migraine. She reports she has a history of migraines but has not had one since 2021. Patient reports she has had little success with triptans in the past. She reports this headache started around 2:00 p.m. today. Patient endorses nausea with the headache. She reports this is similar to previous migraines. Patient reports daily thing that has helped in the past as when she has come into the ER for rehydration. She reports she is 12 weeks at this time. Patient denies any other medical history relevant to this ER visit. Labs Ordered: None necessary Imaging Ordered: None necessary Medications Ordered: Benadryl 25 mg IV, 1 L normal saline IV bolus, Reglan 10 mg IV Diagnosis: Migraine headache Patient Education/Shared MDM: Following medication administration patient endorses improvement of symptoms following medication administration. Patient strongly advised to maintain hydration status upon discharge and follow-up with her OBGYN as soon as possible. She will be discharged home with a prescription for Reglan. Strict return precautions provided. Patient verbalized understanding and is in agreement with plan. Vital signs stable at time of discharge. All questions answered. Differential Diagnosis Differential diagnosis: Likely migraine, tension headache, headache and other (Dehydration) Discharge Plan Discharge Clinical Impression: Headache, Migraine Patient Disposition: Home Condition: Stable Instructions: Antibiotic Form, Migraine Headache (ED) Additional Instructions: Please return to the ER with any worsening symptoms. Follow-up with your OBGYN as soon as possible. You may take Tylenol at home for pain control. Please take Reglan as needed for nausea. Remember to drink lots of water. Patient Language: St Helen[place] Prescriptions: New metoclopramide HCl 10 mg tablet 10 mg PO Q6H PRN (Reason: nausea and vomiting) Qty: 20 0RF No Action methylprednisolone [Medrol (Gael)] 4 mg tablets,dose pack See Rx Instructions .ROUTE .COMPLEX Qty: 21 0RF Rx Instructions: orally per package directions cyclobenzaprine 10 mg tablet 10 mg PO TID PRN (Reason: muscle spasm) Qty: 15 0RF Follow-up/Referrals: UNKNOWN,DOCTOR [Primary Care Provider] Stand Alone Forms: Work/School Release IP Time of Disposition: 22:01
[2025-03-29] MEDS: METOCLOPRAMIDE HCL INJ 10 MG/2 ML VIAL IV PUSH (21:13)
== END 2025-03-29 22:25 | disposition home or self-care (01) ==
PROVIDERS: Emergency Provider Registered Nurse
DX: O26.891 Other specified pregnancy related conditions, first trimester (principal); G43.909 Migraine, unspecified, not intractable, without status migrainosus; Z3A.12 12 weeks gestation of pregnancy
CPT/HCPCS: 96361; 96374; 96375; 99284; J1200; J2765; J7030